=== PATIENT | female | born 1945 | race Caucasian/White ===

== ENCOUNTER 2017-03-20 09:57 | Outpatient (CLI) | payer MEDICARE, BC ==
--- NOTE | 2017-03-20 20:08 | MRI ---
BRAIN MRI WITHOUT CONTRAST: 03/20/17 COMPARISON: None. HISTORY: Left sided headaches which extend to the vertex as well as the ear on the left. TECHNIQUE: Multiplanar and multisequence MR imaging of the brain is provided without contrast. FINDINGS: The diffusion weighted imaging demonstrates no evidence for acute infarction. The axial gradient echo imaging demonstrates no evidence for intracranial hemorrhage. There are no n umerous small foci of increased T2 and FLAIR signal throughout the periventricular deep and subcorti barbara white matter bilaterally, evidence of small vessel disease. There is mild degenerative change at the atlanto-axial interspace. There is mild mucosal thickening involving the maxillary sinuses bilaterally. Arterial flow voids at the axial level of the skull base appear grossly unremarkable on the T2 weighted imaging. IMPRESSION: Numerous foci of signal abnormality within the white matter suggesting significant small vessel dise ase. No acute infarction or intracranial hemorrhage. POS: [facility]
== END 2017-03-20 09:58 | disposition home or self-care (01) ==
LOC: SCSMRI 09:57
PROVIDERS: ATTEND Family Medicine
DX: R51 Headache (principal)
CPT/HCPCS: 70551

== ENCOUNTER 2017-05-17 11:53 | Outpatient (CLI) | payer MEDICARE, BC ==
--- NOTE | 2017-05-17 16:55 | CT ---
EXAM: CT ANGIOGRAM OF THE [place] 05/17/17 HISTORY: Frequent headaches. Evaluate for intracranial aneurysm. COMPARISON: None. TECHNIQUE: CT angiogram of the [place] is performed in the axial plane. Sagittal and coronal three dime nsional reformatted images are submitted for interpretation. FINDINGS: NONCONTRAST HEAD CT: No parenchymal hemorrhage. No extra-axial hematoma. No midline shift. Basilar cisterns are patent. Ag e appropriate brain volume. Cortical jacobs-white matter differentiation is preserved. Ventricles and s ulci are patent and symmetric. White matter hypodensities due to chronic small vessel ischemic change are noted. The calvarium is in tact. Adequate aeration of the sinuses and mastoid air cells Minimal bilateral maxillary sinus mucosa l thickening. POSTCONTRAST HEAD CT: There is preservation of cortical jacobs-white matter differentiation. No pathologic enhancement of the brain parenchyma. CT ANGIOGRAM: There is symmetric enhancement and luminal diameter in the visualized distal cervical and intracrania l internal carotid arteries. There is atherosclerosis in both cavernous and paraclinoid segments with out significant stenosis. ANTERIOR CIRCULATION: Symmetric enhancement and luminal diameter of the A1 and M1 segments. Symmetric enhancement and lumin al diameter of the proximal A2 segment and proximal MCA branches. No evidence of significant occlusio n. No evidence of an anterior circulation aneurysm. POSTERIOR CIRCULATION: Vertebral arteries are essentially codominant. Left and right PICA artery origins are unremarkable. B oth vertebral arteries supply normal caliber basilar artery. The left and right P1 segments have symm etric enhancement and luminal diameter. No evidence of significant stenosis or aneurysm in the posterior circulation. IMPRESSION: No evidence of an aneurysm at the level of the [place]. POS: [facility]
== END 2017-05-17 11:54 | disposition home or self-care (01) ==
LOC: CT 11:53
PROVIDERS: ATTEND Student in an Organized Health Care Education/Training Program
DX: R51 Headache (principal)
CPT/HCPCS: 70496

== ENCOUNTER 2017-06-26 13:09 | Outpatient (CLI) | payer MEDICARE, BC ==
--- NOTE | 2017-06-26 20:59 | EKG ---
Test Reason : Blood Pressure : / mmHG Vent. Rate : 093 BPM Atrial Rate : 093 BPM P-R Int : 166 ms QRS Dur : 086 ms QT Int : 348 ms P-R-T Axes : 054 084 001 degrees QTc Int : 432 ms Normal sinus rhythm Normal ECG When compared with ECG of 18-FEB-2015 14:53, Questionable change in QRS axis Confirmed by VITOR UREÑA ([id number]) on 06/26/2017 8:58:42 PM Referred By: GEOVANNA Confirmed By:VITOR UREÑA
== END 2017-06-26 13:10 | disposition home or self-care (01) ==
LOC: LABBT 13:09
PROVIDERS: ATTEND Surgery
DX: Z01.810 Encounter for preprocedural cardiovascular examination (principal); Z01.812 Encounter for preprocedural laboratory examination; M31.6 Other giant cell arteritis
CPT/HCPCS: 36415; 80053; 93005; 93010

== ENCOUNTER 2017-06-28 05:51 | Day surgery (SDC) | payer MEDICARE, BC ==
[2017-06-26 13:33] VITALS: BMI 35.0
[2017-06-28] MEDS ORDERED: CEFAZOLIN/Water 2 GM/20 ML SYRINGE ONE (06:12)
[2017-06-28] MEDS ORDERED: Lidocaine 1% w/Epinephrine 1:200K 30 ML VIAL ONE (06:39)
[2017-06-28] MEDS ORDERED: Levofloxacin 500 mg/D5W 100 ml Premix Bag ONE (07:24)
[2017-06-28] MEDS ORDERED: Midazolam HCl 2 mg/2 ml Vial ONE (07:30)
[2017-06-28] MEDS ORDERED: Fentanyl 100 MCG/2 ML VIAL ONE (07:30)
[2017-06-28] MEDS ORDERED: HYDROmorphone 0.5 MG/0.5 ML SYRINGE ONE (07:31)
--- NOTE | 2017-06-28 10:39 | OP ---
PREOPERATIVE DIAGNOSIS: Left temporal headaches. SURGEON: Sunny Barker M.D. PROCEDURE PERFORMED: Left temporal artery biopsy. INDICATIONS: A 72-year-old female with unilateral temporal headaches that is of unclear etiology. FINDINGS: Small section of artery removed, awaiting pathology. DESCRIPTION OF PROCEDURE: After informed consent was obtained, the patient was taken to the operatin g room and given general endotracheal anesthesia placed in the supine position. Her caodaism was prepp ed and draped in the usual fashion. Local anesthesia infiltrated subcutaneously and deep. A linear incision was performed over the palpable artery. The artery was found. This was dissected out. It was clamped proximally and distally. A small section removed and sent to pathology. The artery was ligated with 3-0 Vicryl ties. Hemostasis was assured. The subcutaneous reapproximated with interrup malik 3-0 Vicryl. Skin closed with a running subcuticular 4-0 Rapide. Dermabond applied. The patient tolerated the procedure well and transferred to recovery in good condition. Sponge and needle count verified correct x2.
[2017-06-28] MEDS ORDERED: Propofol 200 MG/20 ML VIAL ONE (13:11)
[2017-06-28] MEDS ORDERED: Lidocaine 1% PF 5 ML VIAL ONE (13:11)
[2017-06-28] MEDS ORDERED: Glycopyrrolate 0.2 MG/ML 5 ML SYRINGE ONE (13:11)
[2017-06-28] MEDS ORDERED: Ondansetron HCl/PF 4 MG/2 ML Vial ONE (13:11)
[2017-06-28] MEDS ORDERED: ePHEDrine/0.9% NaCl/PF SYRINGE 50 mg/10 ml ONE (13:11)
== END 2017-06-28 09:48 | disposition home or self-care (01) ==
LOC: SDC 05:51
PROVIDERS: ATTEND Surgery
PROC: 03BT0ZX Excision of Left Temporal Artery, Open Approach, Diagnostic (ICD-10-PCS; principal; 2017-06-28)
DX: M31.6 Other giant cell arteritis (principal); I47.1 Supraventricular tachycardia; E03.9 Hypothyroidism, unspecified; D68.2 Hereditary deficiency of other clotting factors; E55.9 Vitamin D deficiency, unspecified; I11.0 Hypertensive heart disease with heart failure; I50.30 Unspecified diastolic (congestive) heart failure; M48.02 Spinal stenosis, cervical region; M79.672 Pain in left foot; G89.29 Other chronic pain; E10.9 Type 1 diabetes mellitus without complications; K21.9 Gastro-esophageal reflux disease without esophagitis; M19.90 Unspecified osteoarthritis, unspecified site; J45.909 Unspecified asthma, uncomplicated; Z79.01 Long term (current) use of anticoagulants; Z79.899 Other long term (current) drug therapy; Z96.41 Presence of insulin pump (external) (internal); Z88.0 Allergy status to penicillin; Z88.2 Allergy status to sulfonamides; Z88.1 Allergy status to other antibiotic agents; Z98.51 Tubal ligation status; Z90.81 Acquired absence of spleen; Z90.49 Acquired absence of other specified parts of digestive tract; Z90.710 Acquired absence of both cervix and uterus; Z90.79 Acquired absence of other genital organ(s); Z90.722 Acquired absence of ovaries, bilateral; Z98.890 Other specified postprocedural states; Z86.010 Personal history of colon polyps; Z85.828 Personal history of other malignant neoplasm of skin; Z86.718 Personal history of other venous thrombosis and embolism; Z86.711 Personal history of pulmonary embolism
CPT/HCPCS: 36416; 88305; 88313; J1170; J1956; J2250; J3010

== ENCOUNTER 2017-07-06 14:40 | Emergency (ER) | payer MEDICARE, BC ==
--- NOTE | 2017-07-06 15:14 | RAD ---
CHEST 1 VIEW: HISTORY: Weakness. COMPARISON: 02/17/15. FINDINGS: Cardiac silhouette and pulmonary vasculature are unremarkable. Mediastinum is midline with aortic ca lcification. There is no lobar consolidation or evidence of pneumothorax. IMPRESSION: 1. Atherosclerosis. 2. Stable radiographic appearance of the chest. POS: [facility]
[2017-07-06 15:30] LABS: Hemoglobin 13.9 g/dL (12.0-16.0); Mean Corpuscular Volume 93.9 fl (81.0-99.0); Mean Platelet Volume 7.8 fL (7.4-10.4); Platelet Count 437 thou/uL (130-400); RBC Distribution Width 12.8 % (11.5-14.5); Red Blood Cell (RBC) Count 4.62 mill/uL (4.20-5.40); White Blood Cell (WBC) Count 16.1 thou/uL (4.8-10.8)
[2017-07-06 15:51] LABS: ALT (SGPT) 25 U/L (8-55); AST (SGOT) 22 U/L (5-34); Albumin 3.9 g/dL (3.4-4.8); Alkaline Phosphatase 45 U/L (40-150); Anion Gap 14 mmol/L (10-20); BUN (Urea Nitrogen) 63 mg/dL (9.8-20.1); Bilirubin, Total 0.4 mg/dL (0.2-1.2); CK (CPK) 91 U/L (29-168); Calc. Creatinine Clearance 0 mL/min (70-130); Calcium 11.7 mg/dL (7.8-10.44); Carbon Dioxide 22 mmol/L (23-31); Chloride 101 mmol/L (98-107); Estimated GFR-MDRD 32; Globulin 3.8 g/dL (2.4-3.5); Glucose 186 mg/dL (83-110); Potassium 4.3 mmol/L (3.5-5.1); Protein, Total 7.7 g/dL (6.0-8.3); Sodium 133 mmol/L (136-145)
[2017-07-06 15:55] LABS: CKMB 2.5 ng/mL (0-6.6); Troponin I Less than 0.010 ng/mL (< 0.028)
[2017-07-06 16:00] LABS: Band 4 % (5-11); Eosinophils 1 % (0-10); Lymphocytes 8 % (21-51); MDiff Complete? YES; Monocytes 2 % (0-10); Neutrophil 85 % (42-75); PLT Morphology Comment Appears Increased
[2017-07-06 16:16] LABS: Bilirubin Small (Negative); Blood, Urine Negative (Negative); Clarity CLOUDY (Clear); Glucose, Urine (Dipstick) Negative (Negative); Leukocyte Small (Negative); Nitrite Negative (Negative); Protein, Urine (Dipstick) 30 mg/dL (Neg-Trace); Urobilinogen 0.2 mg/dL (0.2-1.0)
[2017-07-06 16:33] LABS: Bacteria/HPF 3+ HPF (None Seen); RBC/HPF 0-3 HPF (0-3)
[2017-07-06 16:34] LABS: Crystals/HPF 1+ CA OXALATE HPF (Negative); Hyaline Casts/LPF NONE SEEN LPF (0-3 Hyaline); Yeast-All Forms 2+ HPF (None Seen)
== END 2017-07-06 19:00 | disposition home or self-care (01) ==
LOC: ERS 14:40
DX: N39.0 Urinary tract infection, site not specified (principal); N28.9 Disorder of kidney and ureter, unspecified; E11.9 Type 2 diabetes mellitus without complications; E03.9 Hypothyroidism, unspecified; E78.5 Hyperlipidemia, unspecified; I10 Essential (primary) hypertension; Z86.711 Personal history of pulmonary embolism
CPT/HCPCS: 36415; 71045; 80053; 81003; 81015; 82553; 83605; 84484; 85025; 87086; 93005; 96361; 96365; J0696

== ENCOUNTER 2018-03-13 12:59 | Outpatient (CLI) | payer MEDICARE, BC ==
--- NOTE | 2018-03-13 15:41 | MRI ---
MRI LEFT KNEE WITHOUT CONTRAST: 03/13/18 HISTORY: S83.242A - tear of medial meniscus. COMPARISON: None. FINDINGS: MEDIAL MENISCUS: There is undersurface incomplete flap tear of the posterior horn/body junction of the medial meniscus extending from the free edge to the intermediate zone. Mild degenerative signal in the body and post erior horn of the medial meniscus. There is 3 mm medial gutter extrusion. LATERAL MENISCUS: There is a radial tear of the lateral meniscal body extending from the free edge to the white and int ermediate zone. The ACL, PCL, MCL and LCL are intact. EXTENSOR MECHANISM: Quadriceps tendon, patella, patellar tendon are intact. CARTILAGE: Patellofemoral compartment: There is high grade 75% thickness cartilage fissuring of the medial trochlea. Medical compartment: There is greater than 50% cartilage fraying and cartilage loss of the anterior weightbearing surface medial femoral condyle and medial tibial plateau. There is chondral delamination. There are some reac tive marrow changes of the medial femoral condyle, medial tibial plateau. Lateral compartment: Low grade fissuring of the central weightbearing surface lateral tibial plateau. MUSCLES: Muscle bulk is normal. There is some mild fatty atrophy of the medial head gastrocnemius. SOFT TISSUES: Small lesion popliteal cyst. There is a thickened medial patella plica which does interpose between the patellofemoral joint media lly. IMPRESSION: 1. Incomplete undersurface flap type tear of the posterior horn/body junction medial meniscus wi th degenerative signal through the body and posterior horn and subsequent 3 mm medial gutter extrusio n. 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 2. Incomplete radial tear of the free edge and white zone of the lateral meniscal body. 3. Nonleaking popliteal cyst. 4. Mild fatty atrophy medial head gastrocnemius. 5. Thickened medial patella plica which does interpose between the medial margin of the patellof emoral joint. POS: [facility]
== END 2018-03-13 13:00 | disposition home or self-care (01) ==
LOC: BICMRI 12:59
PROVIDERS: ATTEND Orthopaedic Surgery
DX: S83.242A Other tear of medial meniscus, current injury, left knee, initial encounter (principal); M71.22 Synovial cyst of popliteal space [Baker], left knee; M94.262 Chondromalacia, left knee; M62.512 Muscle wasting and atrophy, not elsewhere classified, left shoulder; M22.8X2 Other disorders of patella, left knee

== ENCOUNTER 2018-07-02 11:19 | Outpatient (CLI) | payer MEDICARE, BC | END 2018-07-02 11:20 | disposition home or self-care (01) | LOC: BICMAMMO 11:19 | PROVIDERS: ATTEND Obstetrics & Gynecology | DX: Z12.31 Encounter for screening mammogram for malignant neoplasm of breast (principal); Z85.038 Personal history of other malignant neoplasm of large intestine; Z85.820 Personal history of malignant melanoma of skin; Z80.3 Family history of malignant neoplasm of breast | CPT/HCPCS: 77063; 77067 ==

== ENCOUNTER 2018-08-08 14:14 | Outpatient (CLI) | payer MEDICARE, BC ==
[2018-08-08 14:31] LABS: #Basophils 0.1 thou/uL (0.0-0.2); #Eosinphils 0.1 thou/uL (0.0-0.7); #Monocytes 0.6 thou/uL (0.11-0.59); #Neutrophils 8.7 thou/uL (1.40-6.50); %Basophils 0.9 % (0.0-1.0); %Eosinophils 0.9 % (0.0-10.0); %Lymphocytes 24.1 % (21.0-51.0); %Monocytes 4.9 % (0.0-10.0); %Neutrophils 69.2 % (42.0-75.0); Hemoglobin 13.4 g/dL (12.0-16.0); Mean Corpuscular HGB CONC 30.1 g/dL (32.0-36.0); Mean Corpuscular Hemoglobin 28.1 pg (27.0-31.0); Mean Corpuscular Volume 93.5 fL (78.0-98.0); Mean Platelet Volume 7.3 fL (7.4-10.4); Platelet Count 436 thou/uL (130-400); RBC Distribution Width 13.6 % (11.5-14.5); Red Blood Cell (RBC) Count 4.78 mill/uL (4.20-5.40); White Blood Cell (WBC) Count 12.5 thou/uL (4.8-10.8)
[2018-08-08 14:43] LABS: ALT (SGPT) 20 U/L (8-55); AST (SGOT) 16 U/L (5-34); Albumin 3.8 g/dL (3.4-4.8); Alkaline Phosphatase 42 U/L (40-150); Anion Gap 11 mmol/L (10-20); BUN (Urea Nitrogen) 24 mg/dL (9.8-20.1); Bilirubin, Total 0.5 mg/dL (0.2-1.2); Calc. Creatinine Clearance 0 mL/min (70-130); Carbon Dioxide 26 mmol/L (23-31); Chloride 107 mmol/L (98-107); Estimated GFR-MDRD 55; Globulin 3.6 g/dL (2.4-3.5); Glucose 123 mg/dL (83-110); Potassium 3.9 mmol/L (3.5-5.1); Protein, Total 7.4 g/dL (6.0-8.3); Sodium 140 mmol/L (136-145)
--- NOTE | 2018-08-08 15:15 | RAD ---
PA AND LATERAL VIEWS CHEST: Date: 08/08/18 HISTORY: Cough. FINDINGS: Comparison made with exam of 07/06/17. The heart size is normal. The lungs are well expanded without focal areas of consolidation, pneumotho races, or pleural effusions. There are degenerative changes in the spine. IMPRESSION: No radiographic evidence of acute cardiopulmonary process. POS: [facility]
== END 2018-08-08 14:15 | disposition home or self-care (01) ==
LOC: SCSRAD 14:14
PROVIDERS: ATTEND Family Medicine
DX: R05 Cough (principal); R31.0 Gross hematuria
CPT/HCPCS: 36415; 71046; 80053; 81001; 85025; 87086

== ENCOUNTER 2018-08-15 13:28 | Outpatient (CLI) | payer MEDICARE, BC ==
--- NOTE | 2018-08-15 15:19 | CT ---
CT OF THE ABDOMEN AND PELVIS WITH AND WITHOUT IV CONTRAST: Date: 08/15/18 INDICATION: History of hematuria, abdominal cramping and palpable mass on the left aspect of the abdomen. Patient has history of cholecystectomy, appendectomy, hysterectomy, splenectomy, and drainage of pancreatic pseudocyst. The patient has a history of prior squamous cell carcinoma. CONTRAST: 70 mL [id number]. COMPARISON: CT abdomen with contrast dated 03/28/16. FINDINGS: There is bibasilar atelectasis. No renal or ureteral calculus is evident. There are bilateral renal cysts. No solid renal lesion is e vident. No hydronephrosis is noted. No gross urothelial lesion is identified. Tiny hypodensity within the peripheral right hepatic lobe is stable, likely reflecting tiny cysts. Th e gallbladder is surgically absent. The pancreas is unremarkable appearing. The spleen is surgically absent. 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 There are mild vascular calcifications involving the abdominal aorta. No definite visible mass is see n involving the abdominal wall within the palpable region of interest overlying the left upper quadra nt of the abdomen. No free fluid or pathologically enlarged lymph nodes are evident. No visible filling defect is evident within the bladder. There is scattered degenerative and osteoarthritic change. No definite acute osseous abnormality is e vident. IMPRESSION: 1. No solid renal lesion demonstrated. There are bilateral renal cysts. 2. No renal or ureteral calculus. 3. No gross urothelial lesion. 4. Stable hepatic cyst, splenic artery aneurysm, and extensive postsurgical changes to the abdomen a nd pelvis. 5. No definite CT explanation for the patient's palpable mass overlying the anterior aspect of the l eft upper quadrant of the abdomen. POS: [facility]
== END 2018-08-15 13:29 | disposition home or self-care (01) ==
LOC: BICCT 13:28
PROVIDERS: ATTEND Family Medicine
DX: R31.0 Gross hematuria (principal); N28.1 Cyst of kidney, acquired; I72.8 Aneurysm of other specified arteries; K76.89 Other specified diseases of liver; Z98.890 Other specified postprocedural states
CPT/HCPCS: 74178

== ENCOUNTER 2018-08-30 07:32 | Outpatient (CLI) | payer MEDICARE, BC ==
--- NOTE | 2018-08-30 11:15 | NM ---
NM Parathyroid Planar W/Spect CT HISTORY: Hypercalcemia, upper normal parathyroid hormone level COMPARISON: None. RADIOPHARMACEUTICAL: 26 mCi technetium 99m-sestamibi injected intravenously FINDINGS: There is physiologic activity in the salivary glands and the thyroid gland. The SPECT image s demonstrate focus of increased uptake in the region of the left superior parathyroid gland. 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 Confirmation with contrast-enhanced CT scan of the neck using the parathyroid adenoma protocol is rec ommended.
== END 2018-08-30 07:33 | disposition home or self-care (01) ==
LOC: NM 07:32
PROVIDERS: ATTEND Urology
DX: E83.52 Hypercalcemia (principal); R82.998 Other abnormal findings in urine
CPT/HCPCS: 78072; A9500

== ENCOUNTER 2018-09-17 07:31 | Outpatient (CLI) | payer MEDICARE, BC ==
--- NOTE | 2018-09-19 08:06 | PFT ---
PATIENT HISTORY: HEIGHT: WEIGHT: SMOKER: HOW LONG: PACKS PER DAY PRODUCTIVE COUGH: LUNG DISEASE: PHYSICIAN INTERPRETATION FINAL REPORT: Patient had fair effort and good cooperation. FVC 2.32 (85%), FEV1 1.71 (83%), FEV1/FVC 0.74 RV 1.51 (75%), TLC 3.98 (83%) The FEV1 and the FVC are within the lower limits of normal. The ratio is not suggestive of obstructive air flow limitation. Lung Volumes including FRC and RV are reduced. The total lung capacity falls with in the lower limits of normal. Diffusion capacity data was not performed. IMPRESSION: Overall, these pulmonary function studies are within normal limits. The reduced lung volumes are in keeping with the patients body habitus, though a different early restrictive process cannot be excluded. Diffusion capacity would help to interpret these data. I have no priors for comparison. Precision Assembly Inspector: ENDY Activated Sludge Operator: ENDY POWELL
== END 2018-09-17 07:32 | disposition home or self-care (01) ==
LOC: CP 07:31
PROVIDERS: ATTEND Family Medicine
DX: R05 Cough (principal)
CPT/HCPCS: 94010; 94727

== ENCOUNTER 2019-04-03 08:07 | Day surgery (SDC) | payer MEDICARE, BC ==
[2019-04-02 09:53] VITALS: BMI 36.3
--- NOTE | 2019-04-03 14:14 | OP ---
DATE OF PROCEDURE: 04/03/2019 PROCEDURE PERFORMED: Esophagogastroduodenoscopy (diagnostic). INDICATIONS FOR PROCEDURE: Prior history of gastric ulcers, iron deficiency anemia. DESCRIPTION OF PROCEDURE: After the risks and benefits of the procedure were explained to the patient including risks of bleeding, infection, perforation, reactions to anesthesia, aspiration and/or pain, informed consent was obtained. The patient was then taken to the endoscopy suite, where she was placed in the left lateral decubitus position along with administration of propofol for sedation with anesthesia support. Once the patient was adequately sedated, the standard gastroscope was introduced into the mouth with intubation of the esophagus, stomach, and the proximal small intestines with the findings listed below. The patient tolerated the procedure well with no immediate perioperative complications. Upon conclusion of the procedure, all equipment was removed from the patient and she was transferred to Day Stay in satisfactory condition. FINDINGS: Esophagus: Normal-appearing mucosa was seen in the proximal, mid, and distal esophagus. There was no evidence of erosions, ulcerations, mass, lesions, or active/recent bleeding. Stomach: Evidence of prior gastric surgery consistent with cystogastrostomy was seen in the distal body/proximal antrum. There was one area of friable mucosa with visible sutures seen emanating from the gastric mucosa itself, but no evidence of mucosal breakdown. There was an additional area of sutures present as well, but there was no associated abnormalities in that position as well. Otherwise, normal-appearing mucosa was seen in the gastric cardia, fundus, body, and distal antrum. There were no ulcers seen in the gastric fundus that were previously described on the EGD performed on December 17, 2018. There were no evidence of erosions, ulcerations, mass, lesions, or active/recent bleeding. Duodenum: Normal-appearing mucosa was seen in both the duodenal bulb and second portion of the duodenum. There was no evidence of erosions, ulcerations, mass, lesions, or active/recent bleeding. IMPRESSION: 1. Surgical change consistent with prior cystogastrostomy seen in the gastric distal body/gastric antrum with visible sutures. 2. Previously described gastric ulcers were not seen during this examination with healing of the gastric mucosa. RECOMMENDATIONS: 1. The patient could consider weaning down off PPI decreasing to 20 mg daily for the next 2 weeks, then 20 mg every other day for 2 weeks, then 20 mg every 2 days for an additional week, then discontinuation of the medication. 2. We would avoid any NSAIDs given history of gastric ulcers. 3. Can restart anticoagulation today given lack of any evidence of further ulcerations or bleeding. 4. We would continue to monitor the patient's H and H and if decreasing, we would consider repeat iron indices at that time for further characterization of anemia and if deemed to be iron deficiency, we would pursue capsule endoscopy at that time. 5. Followup in the GI clinic as needed. Job ID: [id number]
[2019-04-03] MEDS ORDERED: PROPOFOL 200 MG/20 ML VIAL ONE (14:35)
[2019-04-03] MEDS ORDERED: Lidocaine 1% PF 5 ML VIAL ONE (14:35)
== END 2019-04-03 10:50 | disposition home or self-care (01) ==
LOC: SDC 08:07
PROVIDERS: ATTEND Internal Medicine
PROC: 0DJ08ZZ Inspection of Upper Intestinal Tract, Via Natural or Artificial Opening Endoscopic (ICD-10-PCS; principal; 2019-04-03)
DX: D50.9 Iron deficiency anemia, unspecified (principal); E03.9 Hypothyroidism, unspecified; M19.90 Unspecified osteoarthritis, unspecified site; K21.9 Gastro-esophageal reflux disease without esophagitis; E11.9 Type 2 diabetes mellitus without complications; I10 Essential (primary) hypertension; Z87.11 Personal history of peptic ulcer disease; Z79.01 Long term (current) use of anticoagulants; Z79.899 Other long term (current) drug therapy; Z88.0 Allergy status to penicillin; Z88.1 Allergy status to other antibiotic agents; Z88.2 Allergy status to sulfonamides; Z88.8 Allergy status to other drugs, medicaments and biological substances
CPT/HCPCS: 36416

== ENCOUNTER 2019-04-25 13:44 | Outpatient (CLI) | payer MEDICARE, BC ==
--- NOTE | 2019-04-25 14:04 | RAD ---
XR Chest Pa Lat STANDARD HISTORY: Shortness of breath, cough COMPARISON: 08/08/2018 FINDINGS: The heart size is normal. The lungs are well expanded without focal areas of consolidation, pneumothorax or pleural effusions. There are degenerative changes in the spine. IMPRESSION: No radiographic evidence of acute cardiopulmonary process.
== END 2019-04-25 13:45 | disposition home or self-care (01) ==
LOC: SCSRAD 13:44
PROVIDERS: ATTEND Family Medicine
DX: R06.02 Shortness of breath (principal)
CPT/HCPCS: 36415; 71046; 80053; 83880; 85025

== ENCOUNTER 2019-07-10 11:05 | Outpatient (CLI) | payer MEDICARE, BC ==
--- NOTE | 2019-07-10 11:38 | MMO ---
Bilateral MAMMO Bilat Screen [facility]. CLINICAL HISTORY: Patient is 74 years old and is seen for screening. VIEWS: The views performed were: bilateral craniocaudal with tomosynthesis and bilateral mediolateral oblique with tomosynthesis. FILMS COMPARED: The present examination has been compared to prior imaging studies performed at [facility] on 02/21/2016, 02/25/2016, 03/19/2017 and 07/02/2018. This study has been interpreted with the assistance of computer-aided detection. MAMMOGRAM FINDINGS: There are scattered fibroglandular densities. There are no suspicious masses, suspicious calcifications, or new areas of architectural distortion. IMPRESSION: THERE IS NO MAMMOGRAPHIC EVIDENCE OF MALIGNANCY. A ROUTINE FOLLOW-UP MAMMOGRAM IN 1 YEAR IS RECOMMENDED. THE RESULTS OF THIS EXAM WERE SENT TO THE PATIENT. ACR BI-RADS Category 1 - Negative MAMMOGRAPHY NOTE: 1. A negative mammogram report should not delay a biopsy if a dominant of clinically suspicious mass is present. 2. Approximately 10% to 15% of breast cancers are not detected by mammography. 3. Adenosis and dense breasts may obscure an underlying neoplasm. Reported by: ANASTASIYA SIM MD Electonically Signed: [id number]
== END 2019-07-10 11:06 | disposition home or self-care (01) ==
LOC: BICMAMMO 11:05
PROVIDERS: ATTEND Obstetrics & Gynecology
DX: Z12.31 Encounter for screening mammogram for malignant neoplasm of breast (principal)
CPT/HCPCS: 77063; 77067

== ENCOUNTER 2020-07-20 16:09 | Outpatient (CLI) | payer MEDICARE, BC ==
--- NOTE | 2020-07-20 16:45 | MMO ---
Bilateral MAMMO Bilat Screen [facility]. CLINICAL HISTORY: Patient is 75 years old and is seen for screening. The patient has the following family history of breast cancer: sister, at age 49. The patient has no personal history of cancer. VIEWS: The views performed were: bilateral craniocaudal with tomosynthesis and bilateral mediolateral oblique with tomosynthesis. FILMS COMPARED: The present examination has been compared to prior imaging studies performed at [facility] on 02/25/2016, 03/19/2017, 07/02/2018 and 07/10/2019. This study has been interpreted with the assistance of computer-aided detection. MAMMOGRAM FINDINGS: There are scattered fibroglandular densities. There are no suspicious masses, suspicious calcifications, or new areas of architectural distortion. IMPRESSION: THERE IS NO MAMMOGRAPHIC EVIDENCE OF MALIGNANCY. A ROUTINE FOLLOW-UP MAMMOGRAM IN 1 YEAR IS RECOMMENDED. THE RESULTS OF THIS EXAM WERE SENT TO THE PATIENT. ACR BI-RADS Category 1 - Negative MAMMOGRAPHY NOTE: 1. A negative mammogram report should not delay a biopsy if a dominant of clinically suspicious mass is present. 2. Approximately 10% to 15% of breast cancers are not detected by mammography. 3. Adenosis and dense breasts may obscure an underlying neoplasm. Reported by: ANASTASIYA SIM MD Electonically Signed: [id number]
== END 2020-07-20 16:10 | disposition home or self-care (01) ==
LOC: BICMAMMO 16:09
PROVIDERS: ATTEND Obstetrics & Gynecology
DX: Z12.31 Encounter for screening mammogram for malignant neoplasm of breast (principal); Z80.3 Family history of malignant neoplasm of breast
CPT/HCPCS: 77063; 77067

== ENCOUNTER 2021-04-20 10:25 | Outpatient (CLI) | payer MEDICARE, BC ==
[2021-04-20 11:38] LABS: #Eosinphils 0.1 10x3/uL (0.0-0.5); #Monocytes 0.5 10x3/uL (0.0-1.1); #Neutrophils 7.3 10x3/uL (1.5-8.4); %Basophils 0.3 % (0.0-2.0); %Eosinophils 0.9 % (0.0-6.0); %Lymphocytes 24.6 % (18.0-47.0); %Monocytes 4.9 % (0.0-10.0); %Neutrophils 68.9 % (40.0-75.0); Hemoglobin 10.6 g/dL (12.0-15.5); Mean Corpuscular HGB CONC 31.5 g/dL (32.0-36.0); Mean Corpuscular Hemoglobin 28.8 pg (27.0-33.0); Mean Corpuscular Volume 91.6 fl (81.6-98.3); Mean Platelet Volume 9.9 fl (7.4-10.4); Platelet Count 528 10x3/uL (150-450); RBC Distribution Width 15.4 % (11.5-14.5); Red Blood Cell (RBC) Count 3.68 10x6/uL (3.90-5.03); White Blood Cell (WBC) Count 10.6 10x3/uL (3.5-10.5)
[2021-04-20 11:49] LABS: Prothrombin Time 10.7 sec (9.5-12.1)
[2021-04-20 11:57] LABS: Anion Gap 12 mmol/L (10-20); BUN (Urea Nitrogen) 19 mg/dL (9.8-20.1); Calc. Creatinine Clearance 0 mL/min (70-130); Calcium 9.1 mg/dL (7.8-10.44); Carbon Dioxide 24 mmol/L (23-31); Chloride 109 mmol/L (98-107); Glucose 109 mg/dL (83-110); Potassium 4.4 mmol/L (3.5-5.1); Sodium 141 mmol/L (136-145)
[2021-04-20 13:44] LABS: Bilirubin Neg (Negative); Blood, Urine 10 (Negative); Clarity Cloudy (Clear); Glucose, Urine (Dipstick) Normal (Negative); Ketone, Urine Negative (Negative); Leukocyte 500 (Negative); Nitrite Negative (Negative); Protein, Urine (Dipstick) 30 mg/dl (Neg-Trace); Urobilinogen Normal mg/dL (Less than 2)
[2021-04-20 21:35] LABS: SARS-CoV-2 PCR by NAA Not Detected (NotDetected)
== END 2021-04-20 10:26 | disposition home or self-care (01) ==
LOC: LABBT 10:25
PROVIDERS: ATTEND Orthopaedic Surgery
DX: Z01.818 Encounter for other preprocedural examination (principal); M17.12 Unilateral primary osteoarthritis, left knee; Z20.822 Contact with and (suspected) exposure to COVID-19
CPT/HCPCS: 80048; 81003; 85025; 85610; 87081; U0003; U0005; 93005; 93010

== ENCOUNTER 2021-04-25 05:36 | Observation (INO) | payer MEDICARE, BC ==
[2021-04-21 14:41] VITALS: BMI 36.6
[2021-04-25] MEDS ORDERED: Tranexamic Acid 1,000 MG/10 ML VIAL ONE (05:59)
[2021-04-25] MEDS ORDERED: Levofloxacin 500 mg/D5W 100 ml Premix Bag ONE (05:59)
[2021-04-25] MEDS ORDERED: Sodium Chloride 0.9% 100 ML ONE (05:59)
[2021-04-25] MEDS ORDERED: Vancomycin 1.5 GRAM/300 ML BAG 1.5 GM in Premix Bag 1 BAG IVPB SCH ×2 (06:15→18:15)
[2021-04-25] MEDS ORDERED: Bupivacaine PF 0.5% 30 ML VIAL ONE (06:26)
[2021-04-25] MEDS ORDERED: Promethazine HCl 25 MG/ML VIAL IVPB PRN (06:32)
[2021-04-25] MEDS ORDERED: Promethazine HCl 25 MG/ML VIAL IM PRN ×3 (06:32→07:45)
[2021-04-25] MEDS ORDERED: Ondansetron HCl/PF 4 MG/2 ML Vial IVP PRN (06:32)
[2021-04-25] MEDS ORDERED: Midazolam HCl 2 mg/2 ml Vial ONE (06:41)
[2021-04-25] MEDS ORDERED: Fentanyl 100 MCG/2 ML VIAL ONE ×3 (06:41→07:48)
[2021-04-25] MEDS ORDERED: Zolpidem Tartrate 5 MG TAB PO PRN ×2 (06:56→07:45)
[2021-04-25] MEDS ORDERED: diphenhydrAMINE 25 MG CAP PO PRN (06:56)
[2021-04-25] MEDS ORDERED: Acetaminophen 325 MG TAB PO PRN (06:56)
[2021-04-25] MEDS ORDERED: Ondansetron PF 4 MG/2 ML Vial IVP PRN ×2 (06:56→07:45)
[2021-04-25] MEDS ORDERED: HYDROcodone/Acetaminophen 10/325 mg Tablet PO PRN ×3 (06:56→07:45)
[2021-04-25] MEDS ORDERED: Fentanyl 100 MCG/2 ML VIAL SLOW IVP PRN (06:56)
[2021-04-25] MEDS ORDERED: Ondansetron PF 4 MG/2 ML Vial ONE (07:12)
[2021-04-25] MEDS ORDERED: ePHEDrine 50 MG/ML VIAL ONE (07:12)
[2021-04-25] MEDS ORDERED: Labetalol HCl 100 MG/20 ML VIAL ONE (07:12)
[2021-04-25] MEDS ORDERED: Phenylephrine 10 MG/ML VIAL ONE (07:12)
[2021-04-25] MEDS ORDERED: Ketorolac Tromethamine 30 MG/ML VIAL ONE (07:12)
[2021-04-25] MEDS ORDERED: Bupivacaine HCl 0.5%/Epinephrine 1:200,000/PF 30 ml Vial ONE (07:12)
[2021-04-25] MEDS ORDERED: PROPOFOL 200 MG/20 ML VIAL ONE (07:12)
[2021-04-25] MEDS ORDERED: Levothyroxine Sodium 50 MCG TAB PO SCH (07:30)
[2021-04-25] MEDS ORDERED: Albuterol Sulfate 2.5 mg/3 ml Neb NEB PRN (07:32)
[2021-04-25] MEDS ORDERED: Fentanyl 100 MCG/2 ML VIAL IV PRN (07:42)
[2021-04-25] MEDS ORDERED: SUBCUTANEOUS INSULIN PUMP SC SCH (07:45)
[2021-04-25] MEDS ORDERED: Ropivacaine 0.2% 550 ML 550 ML NERVE BLCK SCH (07:45)
[2021-04-25] MEDS ORDERED: traMADol HCl 50 MG TAB PO PRN ×2 (07:45)
[2021-04-25] MEDS ORDERED: cloNIDine 0.3mg/24 Hour PATCH TD SCH (09:00)
[2021-04-25] MEDS: Spironolactone 25 MG TAB PO SCH (11:45)
[2021-04-25] MEDS: Sodium Chloride 0.9% 1,000 ML IV SCH ×2 (11:45→13:44)
[2021-04-25] MEDS: Cholecalciferol 1,000 UNITS (25 MCG) TAB PO SCH (11:45)
[2021-04-25] MEDS: Aspirin 81 mg Enteric Coated Tablet PO SCH ×2 (11:45→20:35)
[2021-04-25] MEDS: Losartan 25 MG TAB PO SCH (11:46)
[2021-04-25] MEDS: hydrALAZINE 25 MG TAB PO SCH ×4 (11:46→20:36)
[2021-04-25] MEDS: Ketorolac Tromethamine 30 MG/ML VIAL IVP SCH ×3 (12:12→23:31)
[2021-04-25] MEDS ORDERED: FLU VACC QS2021-22(65YR UP)/PF 240 MCG/0.7 ML SYRINGE IM ONE (18:00)
[2021-04-25] MEDS ORDERED: Dextrose 50% Abboject 50 ML SYRINGE SLOW IVP PRN (18:41)
[2021-04-25] MEDS ORDERED: Dextrose 5% in Water 1,000 ML IV PRN (18:41)
[2021-04-25] MEDS ORDERED: Atorvastatin Calcium 10 MG TAB PO SCH (21:00)
[2021-04-26 05:11] LABS: Hemoglobin 8.2 g/dL (12.0-16.0); Mean Corpuscular HGB CONC 31.2 g/dL (32.0-36.0); Mean Corpuscular Hemoglobin 30.1 pg (27.0-31.0); Mean Corpuscular Volume 96.5 fL (78.0-98.0); Mean Platelet Volume 6.7 fL (7.4-10.4); Platelet Count 423 thou/uL (130-400); Red Blood Cell (RBC) Count 2.73 mill/uL (4.20-5.40); White Blood Cell (WBC) Count 15.1 thou/uL (4.8-10.8)
[2021-04-26] MEDS: Ketorolac Tromethamine 30 MG/ML VIAL IVP SCH ×2 (05:22→11:54)
[2021-04-26] MEDS: Sodium Chloride 0.9% 1,000 ML IV SCH ×2 (05:24→15:30)
[2021-04-26] MEDS: HYDROcodone/Acetaminophen 10/325 mg Tablet PO PRN ×2 (05:26→12:50)
[2021-04-26] MEDS ORDERED: Levothyroxine Sodium 50 MCG TAB PO SCH (06:00)
[2021-04-26] MEDS: Cholecalciferol 1,000 UNITS (25 MCG) TAB PO SCH (08:50)
[2021-04-26] MEDS: Aspirin 81 mg Enteric Coated Tablet PO SCH (08:55)
[2021-04-26] MEDS: Spironolactone 25 MG TAB PO SCH (08:56)
[2021-04-26] MEDS ORDERED: Senokot S 8.6-50 MG TAB PO SCH (09:00)
[2021-04-26] MEDS ORDERED: Enoxaparin Sodium 40 MG/0.4 ML SYRINGE SC SCH (09:00)
[2021-04-26] MEDS ORDERED: Multivitamin W/ Minerals 1 TAB PO SCH (09:00)
[2021-04-26] MEDS ORDERED: Ferrous Gluconate 324 MG TAB PO SCH (09:00)
[2021-04-26] MEDS: Losartan 25 MG TAB PO SCH (09:54)
[2021-04-26] MEDS: hydrALAZINE 25 MG TAB PO SCH ×2 (09:54→12:48)
[2021-04-26 12:18] VITALS: BP 128/61
[2021-04-26 15:55] VITALS: TEMP 98.2
== END 2021-04-26 15:45 | disposition home or self-care (01) ==
LOC: SDC 05:36 → SJJU 05:40 → UNDOADMOB 06:20 → SURG A 06:20 → INTOOBSV 06:20 → SJJU 06:56 → SDC 06:56 → SJJU 10:36 → SURG A 10:36 → SJJU 04-26 12:50 → SDC 04-26 12:50 → UNDODISOB 04-26 15:45 → SJJU 04-27 05:40 → UNDOADMOB 04-27 05:40
PROVIDERS: ADMIT Orthopaedic Surgery; ATTEND Orthopaedic Surgery
PROC: 0SRD0J9 Replacement of Left Knee Joint with Synthetic Substitute, Cemented, Open Approach (ICD-10-PCS; principal; 2021-04-25)
PROC: 8E0YXBZ Computer Assisted Procedure of Lower Extremity (ICD-10-PCS; 2021-04-25)
PROC: 3E0T3BZ Introduction of Anesthetic Agent into Peripheral Nerves and Plexi, Percutaneous Approach (ICD-10-PCS; 2021-04-25)
DX: M17.12 Unilateral primary osteoarthritis, left knee (principal); E03.9 Hypothyroidism, unspecified; D68.2 Hereditary deficiency of other clotting factors; E11.3499 Type 2 diabetes mellitus with severe nonproliferative diabetic retinopathy without macular edema, unspecified eye; I11.0 Hypertensive heart disease with heart failure; I50.30 Unspecified diastolic (congestive) heart failure; E89.2 Postprocedural hypoparathyroidism; M65.331 Trigger finger, right middle finger; I45.6 Pre-excitation syndrome; E78.5 Hyperlipidemia, unspecified; D50.9 Iron deficiency anemia, unspecified; Z86.711 Personal history of pulmonary embolism; Z86.718 Personal history of other venous thrombosis and embolism; Z79.01 Long term (current) use of anticoagulants; Z79.4 Long term (current) use of insulin; Z79.899 Other long term (current) drug therapy; Z88.0 Allergy status to penicillin; Z88.1 Allergy status to other antibiotic agents; Z88.2 Allergy status to sulfonamides; Z96.41 Presence of insulin pump (external) (internal)
CPT/HCPCS: 20985; 27447; 64448; 73560; 82962 ×2; 85027; 96374; 96375; 96376; 97110; 97116 ×2; 97139 ×2; 97530; A4306; C1713; C1776; G0378 ×2; 36415; 36416; J1650; J1885; J1956; J2250; J2370; J2405; J2704; J2795; J3010; J3370; J3490; J7050; S0020

== ENCOUNTER 2021-11-02 17:56 | Inpatient (IN) | payer MEDICARE, BC ==
[~2021-11-02 17:56] MED LIST: ISOVUE-370 76%-LOCM 1 ML ONE
[2021-11-02 18:24] LABS: #Basophils 0.1 thou/uL (0.0-0.2); #Eosinphils 0.1 thou/uL (0.0-0.7); #Lymphocytes 1.8 thou/uL (1.20-3.40); #Monocytes 1.1 thou/uL (0.11-0.59); %Basophils 0.3 % (0.0-1.0); %Eosinophils 0.4 % (0.0-10.0); %Lymphocytes 9.5 % (21.0-51.0); %Monocytes 5.7 % (0.0-10.0); %Neutrophils 84.2 % (42.0-75.0); Hemoglobin 11.6 g/dL (12.0-16.0); Mean Corpuscular HGB CONC 31.3 g/dL (32.0-36.0); Mean Corpuscular Hemoglobin 30.1 pg (27.0-31.0); Mean Corpuscular Volume 96.1 fL (78.0-98.0); Mean Platelet Volume 6.8 fL (7.4-10.4); Platelet Count 476 thou/uL (130-400); RBC Distribution Width 14.2 % (11.5-14.5); Red Blood Cell (RBC) Count 3.84 mill/uL (4.20-5.40)
[2021-11-02 19:00] LABS: ALT (SGPT) 19 U/L (8-55); AST (SGOT) 21 U/L (5-34); Albumin 3.8 g/dL (3.4-4.8); Alkaline Phosphatase 37 U/L (40-110); Anion Gap 17 mmol/L (10-20); BUN (Urea Nitrogen) 39 mg/dL (9.8-20.1); Bilirubin, Total 0.4 mg/dL (0.2-1.2); Calc. Creatinine Clearance 0 mL/min (70-130); Calcium 10.3 mg/dL (7.8-10.44); Carbon Dioxide 23 mmol/L (23-31); Chloride 104 mmol/L (98-107); Globulin 3.9 g/dL (2.4-3.5); Glucose 142 mg/dL (83-110); Potassium 4.1 mmol/L (3.5-5.1); Protein, Total 7.7 g/dL (5.8-8.1); Sodium 140 mmol/L (136-145)
[2021-11-02] MEDS ORDERED: Ketorolac Tromethamine 30 MG/ML VIAL ONE (20:02)
[2021-11-02] MEDS ORDERED: Morphine 10 MG/ML VIAL ONE (20:02)
[2021-11-02 21:33] LABS: Bilirubin Negative (Negative); Blood, Urine 3+ (Negative); Clarity Extra Turbid (Clear); Glucose, Urine (Dipstick) Normal (Negative); Ketone, Urine Negative (Negative); Leukocyte 25 Leu/uL (Negative); Nitrite Negative (Negative); Protein, Urine (Dipstick) 70 mg/dL (Neg-Trace); RBC/HPF Greater than 50 HPF (0-3); Specific Gravity, Urine 1.029 (1.002-1.036); Urobilinogen Normal mg/dL (Less than 2)
[2021-11-02 21:47] LABS: Bacteria/HPF 2+ HPF (None Seen)
[2021-11-02] MEDS ORDERED: Morphine 4 MG/ML VIAL SLOW IVP PRN (22:54)
[2021-11-02] MEDS ORDERED: Sodium Chloride 0.9% 1,000 ML IV SCH (23:00)
[2021-11-02] MEDS ORDERED: Acetaminophen 325 MG TAB PO PRN (23:00)
[2021-11-02] MEDS ORDERED: Ondansetron ODT 4 MG TAB SL PRN (23:00)
[2021-11-02] MEDS ORDERED: Ondansetron PF 4 MG/2 ML Vial IVP PRN (23:00)
[2021-11-02] MEDS ORDERED: Bisacodyl 5 MG TAB PO PRN (23:32)
[2021-11-02] MEDS ORDERED: Senokot S 8.6-50 MG TAB PO PRN (23:32)
[2021-11-02] MEDS ORDERED: Morphine 2 MG/ML VIAL SLOW IVP PRN (23:40)
[2021-11-02] MEDS ORDERED: Melatonin 3 MG TAB PO PRN (23:45)
[2021-11-02] MEDS ORDERED: hydrALAZINE 20 MG/ML VIAL SLOW IVP PRN (23:45)
[2021-11-02] MEDS ORDERED: Dextrose 5% in Water 1,000 ML IV PRN (23:47)
[2021-11-02] MEDS ORDERED: Dextrose 50% Abboject 50 ML SYRINGE SLOW IVP PRN (23:47)
[2021-11-02] MEDS ORDERED: Pantoprazole 40 MG VIAL IVP SCH (23:59)
[2021-11-03] MEDS: Sodium Chloride 0.9% 1,000 ML IV SCH ×4 (00:54→21:08)
[2021-11-03 00:56] LABS: SARS-CoV-2 NAA Rapid Test Not Detected (NotDetected)
[2021-11-03 01:26] VITALS: BMI 39.1
[2021-11-03] MEDS: Levothyroxine Sodium 50 MCG TAB PO SCH (05:03)
[2021-11-03 06:12] LABS: #Lymphocytes 2.5 thou/uL (1.20-3.40); #Monocytes 1.3 thou/uL (0.11-0.59); #Neutrophils 11.6 thou/uL (1.40-6.50); %Basophils 0.2 % (0.0-1.0); %Eosinophils 0.2 % (0.0-10.0); %Monocytes 8.6 % (0.0-10.0); Hemoglobin 10.1 g/dL (12.0-16.0); Mean Corpuscular HGB CONC 31.8 g/dL (32.0-36.0); Mean Corpuscular Hemoglobin 30.8 pg (27.0-31.0); Mean Platelet Volume 7.3 fL (7.4-10.4); Platelet Count 443 thou/uL (130-400); RBC Distribution Width 14.1 % (11.5-14.5); Red Blood Cell (RBC) Count 3.28 mill/uL (4.20-5.40); White Blood Cell (WBC) Count 15.5 thou/uL (4.8-10.8)
[2021-11-03 06:38] LABS: ALT (SGPT) 17 U/L (8-55); AST (SGOT) 19 U/L (5-34); Albumin 3.1 g/dL (3.4-4.8); Alkaline Phosphatase 32 U/L (40-110); Anion Gap 12 mmol/L (10-20); BUN (Urea Nitrogen) 37 mg/dL (9.8-20.1); Bilirubin, Total 0.4 mg/dL (0.2-1.2); Calc. Creatinine Clearance 45 mL/min (70-130); Calcium 8.9 mg/dL (7.8-10.44); Carbon Dioxide 25 mmol/L (23-31); Chloride 106 mmol/L (98-107); Globulin 3.1 g/dL (2.4-3.5); Glucose 66 mg/dL (83-110); Protein, Total 6.2 g/dL (5.8-8.1); Sodium 139 mmol/L (136-145)
[2021-11-03] MEDS ORDERED: Fentanyl 100 MCG/2 ML VIAL ONE (08:01)
[2021-11-03] MEDS ORDERED: Oxybutynin 5 MG TAB PO PRN (08:52)
[2021-11-03] MEDS ORDERED: HYDROcodone/Acetaminophen 5/325 mg Tablet PO PRN ×2 (08:52)
[2021-11-03] MEDS ORDERED: cloNIDine 0.3mg/24 Hour PATCH TD SCH (09:00)
[2021-11-03] MEDS ORDERED: Promethazine HCl 25 MG/ML VIAL IM PRN (09:01)
[2021-11-03] MEDS ORDERED: Promethazine HCl 25 MG/ML VIAL IVPB PRN (09:01)
[2021-11-03] MEDS ORDERED: Ondansetron HCl/PF 4 MG/2 ML Vial IVP PRN (09:01)
[2021-11-03] MEDS ORDERED: Phenazopyridine HCl 100 MG TAB PO PRN (09:12)
[2021-11-03] MEDS: Losartan 25 MG TAB PO SCH (10:25)
[2021-11-03] MEDS: Docusate 100 MG CAP PO SCH ×2 (10:25→21:09)
[2021-11-03] MEDS: Atorvastatin Calcium 10 MG TAB PO SCH (10:25)
[2021-11-03] MEDS: Apixaban 5 MG TAB PO SCH ×2 (10:25→21:09)
[2021-11-03] MEDS: Pantoprazole 40 MG VIAL IVP SCH (10:26)
[2021-11-03] MEDS ORDERED: Magnesium Oxide 250 MG TAB PO SCH (21:00)
[2021-11-03] MEDS ORDERED: SUBCUTANEOUS INSULIN PUMP SC SCH (23:45)
[2021-11-04] MEDS: Levothyroxine Sodium 50 MCG TAB PO SCH (05:45)
[2021-11-04] MEDS: Sodium Chloride 0.9% 1,000 ML IV SCH (05:46)
[2021-11-04 07:52] LABS: #Lymphocytes 1.2 thou/uL (1.20-3.40); #Monocytes 1.1 thou/uL (0.11-0.59); #Neutrophils 13.9 thou/uL (1.40-6.50); %Basophils 0.2 % (0.0-1.0); %Eosinophils 0.3 % (0.0-10.0); %Lymphocytes 7.2 % (21.0-51.0); %Neutrophils 85.3 % (42.0-75.0); Mean Corpuscular HGB CONC 30.9 g/dL (32.0-36.0); Mean Corpuscular Hemoglobin 30.5 pg (27.0-31.0); Mean Corpuscular Volume 98.8 fL (78.0-98.0); Mean Platelet Volume 7.1 fL (7.4-10.4); Platelet Count 431 thou/uL (130-400); RBC Distribution Width 14.3 % (11.5-14.5); Red Blood Cell (RBC) Count 3.29 mill/uL (4.20-5.40); White Blood Cell (WBC) Count 16.3 thou/uL (4.8-10.8)
[2021-11-04] MEDS ORDERED: Spironolactone 25 MG TAB PO SCH (08:00)
[2021-11-04] MEDS: Losartan 25 MG TAB PO SCH (08:04)
[2021-11-04] MEDS: Pantoprazole 40 MG VIAL IVP SCH (08:05)
[2021-11-04] MEDS: Docusate 100 MG CAP PO SCH (08:05)
[2021-11-04] MEDS: Apixaban 5 MG TAB PO SCH (08:05)
[2021-11-04] MEDS: Atorvastatin Calcium 10 MG TAB PO SCH (08:05)
[2021-11-04 08:09] LABS: Anion Gap 14 mmol/L (10-20); BUN (Urea Nitrogen) 33 mg/dL (9.8-20.1); Calc. Creatinine Clearance 38 mL/min (70-130); Calcium 8.5 mg/dL (7.8-10.44); Carbon Dioxide 19 mmol/L (23-31); Chloride 108 mmol/L (98-107); Glucose 103 mg/dL (83-110); Potassium 4.7 mmol/L (3.5-5.1); Sodium 136 mmol/L (136-145)
[2021-11-04 08:12] VITALS: BP 129/79; TEMP 98.8
== END 2021-11-04 14:52 | disposition home or self-care (01) | DRG 660 ==
LOC: ERS 17:56 → T4-B 22:43 → OBSVTOIN 11-03 11:43
PROVIDERS: ADMIT Internal Medicine; ATTEND Internal Medicine
PROC: 0T768DZ Dilation of Right Ureter with Intraluminal Device, Via Natural or Artificial Opening Endoscopic (ICD-10-PCS; principal; 2021-11-03)
PROC: BT1D1ZZ Fluoroscopy of Right Kidney, Ureter and Bladder using Low Osmolar Contrast (ICD-10-PCS; 2021-11-03)
DX: N13.6 Pyonephrosis (principal); D68.52 Prothrombin gene mutation; Z20.822 Contact with and (suspected) exposure to COVID-19; N17.9 Acute kidney failure, unspecified; E03.9 Hypothyroidism, unspecified; E78.5 Hyperlipidemia, unspecified; R31.0 Gross hematuria; N18.9 Chronic kidney disease, unspecified; E55.9 Vitamin D deficiency, unspecified; E11.22 Type 2 diabetes mellitus with diabetic chronic kidney disease; I12.9 Hypertensive chronic kidney disease with stage 1 through stage 4 chronic kidney disease, or unspecified chronic kidney disease; Z85.89 Personal history of malignant neoplasm of other organs and systems; Z88.1 Allergy status to other antibiotic agents; Z88.2 Allergy status to sulfonamides; Z86.711 Personal history of pulmonary embolism; Z79.899 Other long term (current) drug therapy; Z79.890 Hormone replacement therapy; Z79.01 Long term (current) use of anticoagulants; Z90.49 Acquired absence of other specified parts of digestive tract; Z90.81 Acquired absence of spleen; Z90.710 Acquired absence of both cervix and uterus; Z98.890 Other specified postprocedural states; Z82.0 Family history of epilepsy and other diseases of the nervous system; Z82.49 Family history of ischemic heart disease and other diseases of the circulatory system; Z80.0 Family history of malignant neoplasm of digestive organs; Z82.69 Family history of other diseases of the musculoskeletal system and connective tissue; Z85.828 Personal history of other malignant neoplasm of skin; Z86.718 Personal history of other venous thrombosis and embolism; Z98.51 Tubal ligation status
CPT/HCPCS: 36415; 36416; 74177; 74420; 80048; 80053; 81001; 81003; 81015; 85025; 87040; 87086; 96365; 96375; 96376; C2617; C9113; G0378; J1885; J1956; J2270; J3010; J7050; Q9966; U0002

== ENCOUNTER 2021-11-18 09:26 | Outpatient (CLI) | payer MEDICARE, BC ==
[2021-11-18 10:21] LABS: Hemoglobin 10.7 g/dL (12.0-15.5); Mean Corpuscular Volume 90.5 fl (81.6-98.3); Mean Platelet Volume 10.2 fl (7.4-10.4); Platelet Count 730 10x3/uL (150-450); RBC Distribution Width 15.7 % (11.5-14.5); Red Blood Cell (RBC) Count 3.69 10x6/uL (3.90-5.03); White Blood Cell (WBC) Count 8.2 10x3/uL (3.5-10.5)
[2021-11-18 10:42] LABS: PTT 28.8 sec (22.0-33.0); Prothrombin Time 10.4 sec (9.5-12.1)
[2021-11-18 10:48] LABS: Anion Gap 15 mmol/L (10-20); BUN (Urea Nitrogen) 26 mg/dL (9.8-20.1); Calc. Creatinine Clearance 0 mL/min (70-130); Calcium 9.5 mg/dL (7.8-10.44); Carbon Dioxide 25 mmol/L (23-31); Chloride 105 mmol/L (98-107); Estimated GFR 59; Glucose 143 mg/dL (83-110); Sodium 141 mmol/L (136-145)
== END 2021-11-18 09:27 | disposition home or self-care (01) ==
LOC: LABBT 09:26
PROVIDERS: ATTEND Urology
DX: Z01.818 Encounter for other preprocedural examination (principal); R82.998 Other abnormal findings in urine; N39.41 Urge incontinence; E83.52 Hypercalcemia; R39.15 Urgency of urination; N28.1 Cyst of kidney, acquired; R80.8 Other proteinuria; R31.0 Gross hematuria; Z87.448 Personal history of other diseases of urinary system; Z20.822 Contact with and (suspected) exposure to COVID-19
CPT/HCPCS: 80048; 85027; 85610; 85730; 87811; 93005; 93010

== ENCOUNTER 2021-11-23 06:44 | Day surgery (SDC) | payer MEDICARE, BC ==
[2021-11-18 12:27] VITALS: BMI 37.1
[2021-11-23] MEDS ORDERED: Fentanyl 100 MCG/2 ML VIAL ONE (09:37)
[2021-11-23] MEDS ORDERED: SUGAMMADEX SODIUM 200 MG/2 ML VIAL ONE (09:37)
[2021-11-23] MEDS ORDERED: Levofloxacin 500 mg/D5W 100 ml Premix Bag ONE (09:50)
[2021-11-23] MEDS ORDERED: Iopamidol 15 ML ONE (10:40)
[2021-11-23] MEDS ORDERED: Phenazopyridine HCl 100 MG TAB ONE (10:53)
[2021-11-23] MEDS ORDERED: Oxybutynin 5 MG TAB ONE (10:53)
== END 2021-11-23 12:05 | disposition home or self-care (01) ==
LOC: SDC 06:44
PROVIDERS: ATTEND Urology
PROC: 0T768DZ Dilation of Right Ureter with Intraluminal Device, Via Natural or Artificial Opening Endoscopic (ICD-10-PCS; principal; 2021-11-23)
PROC: 0TC68ZZ Extirpation of Matter from Right Ureter, Via Natural or Artificial Opening Endoscopic (ICD-10-PCS; 2021-11-23)
DX: N13.2 Hydronephrosis with renal and ureteral calculous obstruction (principal); K21.9 Gastro-esophageal reflux disease without esophagitis; E03.9 Hypothyroidism, unspecified; E11.9 Type 2 diabetes mellitus without complications; I10 Essential (primary) hypertension; N39.41 Urge incontinence; D68.2 Hereditary deficiency of other clotting factors; E66.01 Morbid (severe) obesity due to excess calories; Z68.37 Body mass index [BMI] 37.0-37.9, adult; Z86.711 Personal history of pulmonary embolism; Z86.718 Personal history of other venous thrombosis and embolism; Z79.01 Long term (current) use of anticoagulants; Z79.890 Hormone replacement therapy; Z79.899 Other long term (current) drug therapy; Z88.0 Allergy status to penicillin; Z88.1 Allergy status to other antibiotic agents; Z88.2 Allergy status to sulfonamides; Z96.41 Presence of insulin pump (external) (internal)
CPT/HCPCS: 36416; 74018; 74420; 82365; 88300; C2617; J1956; J3010; Q9967

== ENCOUNTER 2022-03-14 11:57 | Outpatient (CLI) | payer MEDICARE, BC | END 2022-03-14 11:58 | disposition home or self-care (01) | LOC: BICULT 11:57 | PROVIDERS: ATTEND Urology | DX: N20.0 Calculus of kidney (principal); N28.1 Cyst of kidney, acquired | CPT/HCPCS: 76770 ==

== ENCOUNTER 2022-03-15 10:03 | Outpatient (CLI) | payer MEDICARE, BC | END 2022-03-15 10:04 | disposition home or self-care (01) | LOC: BICRAD 10:03 | PROVIDERS: ATTEND Urology | DX: N20.0 Calculus of kidney (principal); N28.1 Cyst of kidney, acquired | CPT/HCPCS: 74018 ==

== ENCOUNTER 2022-03-27 12:59 | Outpatient (CLI) | payer MEDICARE, BC ==
[2022-03-27 14:18] LABS: Hemoglobin 10.8 g/dL (12.0-15.5); Mean Corpuscular HGB CONC 32.6 g/dL (32.0-36.0); Mean Corpuscular Hemoglobin 29.1 pg (27.0-33.0); Mean Corpuscular Volume 89.2 fl (81.6-98.3); Mean Platelet Volume 10.3 fl (7.4-10.4); Platelet Count 474 10x3/uL (150-450); RBC Distribution Width 16.8 % (11.5-14.5); Red Blood Cell (RBC) Count 3.71 10x6/uL (3.90-5.03); White Blood Cell (WBC) Count 9.2 10x3/uL (3.5-10.5)
[2022-03-27 14:30] LABS: PTT 29.3 sec (22.0-33.0); Prothrombin Time 10.5 sec (9.5-12.1)
[2022-03-27 14:32] LABS: Anion Gap 13 mmol/L (10-20); BUN (Urea Nitrogen) 45 mg/dL (9.8-20.1); Calc. Creatinine Clearance 0 mL/min (70-130); Calcium 9.5 mg/dL (7.8-10.44); Carbon Dioxide 23 mmol/L (23-31); Chloride 109 mmol/L (98-107); Estimated GFR 24; Glucose 103 mg/dL (83-110); Potassium 4.6 mmol/L (3.5-5.1); Sodium 140 mmol/L (136-145)
== END 2022-03-27 13:00 | disposition home or self-care (01) ==
LOC: LABBT 12:59
PROVIDERS: ATTEND Urology
DX: Z01.818 Encounter for other preprocedural examination (principal); N20.1 Calculus of ureter; Z87.448 Personal history of other diseases of urinary system; R82.998 Other abnormal findings in urine; N39.41 Urge incontinence; E83.52 Hypercalcemia; R81 Glycosuria; Z79.01 Long term (current) use of anticoagulants; R39.15 Urgency of urination; N28.1 Cyst of kidney, acquired; R80.8 Other proteinuria; R31.0 Gross hematuria; N20.0 Calculus of kidney
CPT/HCPCS: 80048; 85027; 85610; 85730; 93005; 93010

== ENCOUNTER 2022-04-05 06:32 | Day surgery (SDC) | payer MEDICARE, BC ==
[2022-04-04 10:20] VITALS: BMI 34.4
[2022-04-05] MEDS ORDERED: Iopamidol 30 ML ONE (08:28)
[2022-04-05] MEDS ORDERED: Famotidine/PF 20 mg/2ml Vial ONE (08:32)
[2022-04-05] MEDS ORDERED: fentaNYL PF 100 MCG/2 ML SYRINGE ONE (08:32)
[2022-04-05] MEDS ORDERED: SUGAMMADEX SODIUM 200 MG/2 ML VIAL ONE (08:32)
[2022-04-05 08:35] LABS: PTT 33.1 sec (22.9-36.1)
[2022-04-05] MEDS ORDERED: Levofloxacin 500 mg/D5W 100 ml Premix Bag ONE (08:35)
[2022-04-05 08:36] LABS: Prothrombin Time 13.7 sec (12.0-14.7)
[2022-04-05] MEDS ORDERED: Glycopyrrolate 0.2 MG/ML 5 ML SYRINGE ONE (08:47)
[2022-04-05] MEDS ORDERED: Metoclopramide HCl 10 MG/2 ML VIAL ONE (08:47)
[2022-04-05] MEDS ORDERED: PHENYLEPHRINE-NS 100 MCG/ML 10 ML SYRINGE ONE (08:47)
[2022-04-05] MEDS ORDERED: Dexamethasone 20 MG/5 ML VIAL ONE (08:47)
[2022-04-05] MEDS ORDERED: ePHEDrine 50 MG/ML VIAL ONE (08:47)
[2022-04-05] MEDS ORDERED: Ondansetron PF 4 MG/2 ML Vial ONE (08:47)
[2022-04-05] MEDS ORDERED: Propofol 1,000 MG/100 ML VIAL IV ONE (08:47)
[2022-04-05] MEDS ORDERED: Rocuronium Bromide 10 MG/ML (10ML VIAL) ONE (08:47)
[2022-04-05] MEDS ORDERED: Phenazopyridine HCl 100 MG TAB ONE (12:00)
[2022-04-05] MEDS ORDERED: Oxybutynin 5 MG TAB ONE (12:01)
== END 2022-04-05 13:43 | disposition home or self-care (01) ==
LOC: SDC 06:32
PROVIDERS: ATTEND Urology
PROC: 0TC48ZZ Extirpation of Matter from Left Kidney Pelvis, Via Natural or Artificial Opening Endoscopic (ICD-10-PCS; principal; 2022-04-05)
PROC: 0T778DZ Dilation of Left Ureter with Intraluminal Device, Via Natural or Artificial Opening Endoscopic (ICD-10-PCS; 2022-04-05)
DX: N20.0 Calculus of kidney (principal); E03.9 Hypothyroidism, unspecified; M19.90 Unspecified osteoarthritis, unspecified site; D68.2 Hereditary deficiency of other clotting factors; E11.3499 Type 2 diabetes mellitus with severe nonproliferative diabetic retinopathy without macular edema, unspecified eye; I11.0 Hypertensive heart disease with heart failure; I50.30 Unspecified diastolic (congestive) heart failure; N39.41 Urge incontinence; N28.1 Cyst of kidney, acquired; Z86.711 Personal history of pulmonary embolism; Z79.01 Long term (current) use of anticoagulants; Z79.4 Long term (current) use of insulin; Z79.890 Hormone replacement therapy; Z79.899 Other long term (current) drug therapy; Z88.0 Allergy status to penicillin; Z88.1 Allergy status to other antibiotic agents; Z88.2 Allergy status to sulfonamides; Z96.41 Presence of insulin pump (external) (internal)
CPT/HCPCS: 74018; 74420; 85610; 85730; C1769; C2617; J1100; J1956; J2405; J2704; J2765; J3490; Q9967; S0028

== ENCOUNTER 2022-04-19 08:24 | Outpatient (CLI) | payer MEDICARE, BC | END 2022-04-19 08:25 | disposition home or self-care (01) | LOC: BICCT 08:24 | PROVIDERS: ATTEND Urology | DX: N20.0 Calculus of kidney (principal); N28.89 Other specified disorders of kidney and ureter | CPT/HCPCS: 36415; 74176; 80048 ==

== ENCOUNTER 2022-08-21 12:02 | Outpatient (CLI) | payer MEDICARE, BC | END 2022-08-21 12:03 | disposition home or self-care (01) | LOC: BICULT 12:02 | PROVIDERS: ATTEND Urology | DX: N20.0 Calculus of kidney (principal); N28.1 Cyst of kidney, acquired | CPT/HCPCS: 76770 ==

== ENCOUNTER 2022-09-15 11:52 | Outpatient (CLI) | payer MEDICARE, BC | END 2022-09-15 11:53 | disposition home or self-care (01) | LOC: BICMAMMO 11:52 | PROVIDERS: ATTEND Family Medicine | DX: Z12.31 Encounter for screening mammogram for malignant neoplasm of breast (principal); Z80.3 Family history of malignant neoplasm of breast | CPT/HCPCS: 77063; 77067 ==

== ENCOUNTER 2023-02-26 17:00 | Outpatient (CLI) | payer MEDICARE, BC | END 2023-02-26 17:01 | disposition home or self-care (01) | LOC: SLEEPLAB 17:00 | PROVIDERS: ATTEND Family Medicine | DX: G47.33 Obstructive sleep apnea (adult) (pediatric) (principal); E11.9 Type 2 diabetes mellitus without complications; I11.0 Hypertensive heart disease with heart failure; I50.22 Chronic systolic (congestive) heart failure; R51.9 Headache, unspecified; E66.9 Obesity, unspecified; R53.83 Other fatigue; R06.83 Snoring | CPT/HCPCS: 95810 ==

== ENCOUNTER 2023-03-13 09:39 | Outpatient (CLI) | payer MEDICARE, BC | END 2023-03-13 09:40 | disposition home or self-care (01) | LOC: BICMAMMO 09:39 | PROVIDERS: ATTEND Family Medicine | DX: Z13.820 Encounter for screening for osteoporosis (principal); Z78.0 Asymptomatic menopausal state; M85.852 Other specified disorders of bone density and structure, left thigh | CPT/HCPCS: 77080 ==

== ENCOUNTER 2023-03-27 17:00 | Outpatient (CLI) | payer MEDICARE, BC | END 2023-03-27 17:01 | disposition home or self-care (01) | LOC: SLEEPLAB 17:00 | PROVIDERS: ATTEND Family Medicine | DX: G47.33 Obstructive sleep apnea (adult) (pediatric) (principal); I11.0 Hypertensive heart disease with heart failure; I50.9 Heart failure, unspecified; R53.83 Other fatigue; R51.9 Headache, unspecified; E66.9 Obesity, unspecified; R06.83 Snoring; Z68.35 Body mass index [BMI] 35.0-35.9, adult | CPT/HCPCS: 95811 ==

== ENCOUNTER 2023-10-31 11:25 | Outpatient (CLI) | payer MEDICARE | END 2023-10-31 11:26 | disposition home or self-care (01) | LOC: BICMAMMO 11:25 | PROVIDERS: ATTEND Family Medicine | DX: Z12.31 Encounter for screening mammogram for malignant neoplasm of breast (principal); Z80.3 Family history of malignant neoplasm of breast | CPT/HCPCS: 77063; 77067 ==